=== PATIENT | male | born 1970 | race Caucasian/White ===

== ENCOUNTER 2020-08-11 21:45 | Emergency (ER) | payer MEDICAID, SELFPAY ==
[2020-08-11 21:56] VITALS: BP 135/68; PULSE 75; RESP 14; TEMP 36.8; O2SAT 97; BMI 29.1
--- NOTE | 2020-08-11 22:19 | ED_ITS ---
HPI - Eye Problem General: Chief complaint: Eye Problems Stated complaint: blurred vision/Lysol in eyes Time Seen by Provider: 08/11/20 22:14 History of Present Illness: HPI Narrative: Patient complained about bilateral eye pain. 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) Severity: severe Severity scale (1-10): 6 If Pain, Quality: burning Associated symptoms: Reports no associated symptoms; Denies fever(s), headache(s), nausea or vomiting Treatments Prior to Arrival: irrigated eye Review of Systems Const: Denies: fever(s), chills or body aches Eyes: Reports: photophobia and other (Pain in both); Denies: change in vision or blurry vision ENMT: Denies: throat pain or nasal congestion Card: Denies: chest pain or dyspnea on exertion Resp: Denies: dyspnea, productive cough or non-productive cough GI: Denies: abdominal pain, nausea or vomiting : Denies: difficulty urinating Musc: Denies: extremity pain Skin/Breast: Denies: rash Neuro: Denies: headache(s) Psych: Denies: anxiety or depression Ankit/Lymph: Denies: easy bruising Physical Exam Const: COMMON NORMALS: no acute distress Eye: COMMON NORMALS: Equal, round and reactive pupils present and conjunctivae normal GENERAL EYE: appearance normal, both eyes and all related structures EYELID: eyelids normal CONJUNCTIVA: Yes conjunctivae normal SCLERA: sclerae normal CORNEA: Yes corneas normal PUPIL: Yes Equal, round and reactive pupils present Course Vital Signs: Vital signs: Vital Signs Temperature 98.3 F 08/11/20 21:56 Pulse Rate 75 08/11/20 21:56 Respiratory Rate 14 08/11/20 21:56 Blood Pressure 135/68 08/11/20 21:56 Pulse Oximetry 97 08/11/20 21:56 MDM - Eye Problem MDM Narrative: Medical decision making narrative: After administration of tetracaine drops patient was able to open his eye said he can see a lot better now his eyes are hurting and he has open his eyes fully more -before he kept them closed. Discharge Plan Discharge Patient Disposition: Home Clinical Impression: Chemical exposure of eye Condition: Stable Prescriptions: New neomycin-polymyxin B-dexameth 3.5mg/mL-10,000 unit/mL-0.1 % drops,suspension 2 drop ophthalmic (eye) Q4H Qty: 5 RF: 0 Discharge Orders: Discharge Order (Routine); Ordered 08/11/20 Ordered By: Manjinder Stanford Discharge Diet: Usual diet Discharge Activity: Resume usual activity Patient Instructions: Chemical Eye [place] (ED) Activity Restrictions/Additional Instructions: Follow-up with medical provider as directed. Take medications as prescribed. Return to the ER or your medical provider if condition worsens. Please read and understand discharge instructions. If any questions ask please. 2 drops in each eye every 4 hours follow-up with an eye doctor in the morning Coding Level of Care Code ED Recruiter Coordinator for Kaylyn Fwluca Exam Expanded Problem Focused
[2020-08-11] MEDS: tetracaine 0.5% Op Soln 4 mL Btl 1 DROP EYE-BOTH (22:41)
[2020-08-11] MEDS: neomycin-poly-dex Op 5 mL Btl 2 DROP EYE-BOTH (23:00)
[2020-08-12 00:29] VITALS: BP 132/62; PULSE 72; RESP 16; O2SAT 98
== END 2020-08-12 00:30 | disposition home or self-care (01) ==
PROVIDERS: Emergency Provider Nurse Practitioner Family
DX: Z77.098 Contact with and (suspected) exposure to other hazardous, chiefly nonmedicinal, chemicals (principal)
CPT/HCPCS: 12345; 99281; 99283